=== PATIENT | female | born 2005 | race Caucasian/White ===

== ENCOUNTER 2025-03-24 21:40 | Emergency (ER) | payer OTHER ==
[~2025-03-24] VITALS: Ht 160 cm; Wt 49.9 kg
[2025-03-24] MEDS ORDERED: LORAZEPAM 1 MG TABLET ONE (23:19)
[2025-03-24] MEDS ORDERED: ACETAMINOPHEN 500 MG TABLET ONE (23:19)
[2025-03-24 23:40] LABS: *URINE HCG, QUAL NEGATIVE (NEGATIVE)
[2025-03-24] MEDS: LORAZEPAM 0.5 MG TABLET PO ONE (23:41)
[2025-03-24] MEDS: ACETAMINOPHEN 500 MG TABLET PO ONE (23:41)
[2025-03-25 00:38] VITALS: BP 128/95; TEMP 98.2; O2SAT 100
== END 2025-03-25 00:39 | disposition home or self-care (01) ==
LOC: ER 21:40
DX: F43.10 Post-traumatic stress disorder, unspecified (principal); V89.2XXA Person injured in unspecified motor-vehicle accident, traffic, initial encounter; Y93.89 Activity, other specified; Y92.410 Unspecified street and highway as the place of occurrence of the external cause; Y99.8 Other external cause status
CPT/HCPCS: 72170; 73560; 84703; A4606; A4663; A9150